=== PATIENT | female | born 2000 | race African-American/Black ===

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

== ENCOUNTER 2021-03-31 21:04 | Emergency (ER) | payer OTHER ==
[~2021-03-31] VITALS: Ht 172.7 cm; Wt 112.0 kg
[2021-03-31] MEDS ORDERED: HALOPERIDOL LACTATE 5MG/ML VIAL IM ONE (21:45)
[2021-03-31] MEDS ORDERED: DIPHENHYDRAMINE 50MG/ML VIAL IM ONE (22:00)
[2021-03-31 22:52] LABS: BASOPHILS % 0.3 % (0.0-2.0); EOSINOPHILS % 0.2 % (0.0-5.0); HEMOGLOBIN. 9.8 g/dL (12.0-16.0); LYMPHOCYTES % 27.2 % (20.0-50.0); MEAN CORPUSCULAR HEMOGLOBIN 24.6 pg (28.0-32.0); MEAN CORPUSCULAR VOLUME 77.6 fL (81.0-99.0); MEAN PLATELET VOLUME 8.2 fl (7.4-10.4); NEUTROPHILS % 67.3 % (40.0-76.0); PLATELET 343 x1000/uL (130-400); RED BLOOD CELL COUNT 3.99 mill/uL (4.2-5.4)
[2021-03-31 22:59] LABS: CHLORIDE 108 mEq/L (98-107)
[2021-03-31 23:03] LABS: ETHANOL BLOOD 261 mg/dL
[2021-03-31 23:04] LABS: HCG SCREEN NEGATIVE
[2021-03-31] MEDS ORDERED: SODIUM CHLORIDE 0.9% 1,000 ML IV ONE (23:30)
[2021-03-31] MEDS ORDERED: KCL 20MEQ/100ML PREMIX 100 ML IV ONE (23:30)
[2021-04-01 01:30] VITALS: BP 111/60
== END 2021-04-01 02:39 | disposition home or self-care (01) ==
LOC: ER 22:10
DX: F10.129 Alcohol abuse with intoxication, unspecified (principal); E87.6 Hypokalemia; Y90.8 Blood alcohol level of 240 mg/100 ml or more; Z91.013 Allergy to seafood
CPT/HCPCS: 36415; 80053; 80320; 84443; 84703; 85025; 96372; 96374; 99284; J1200; J1630; J3480; J7030; G0480